=== PATIENT | male | born 1940 | race Caucasian/White ===

== ENCOUNTER → 2017-08-07 | Emergency (ER) | payer OTHER ==
[~2017-08-07] VITALS: Ht 172.7 cm; Wt 80.7 kg
[~2017-08-07] MED LIST: ALBUTEROL17 GM; ALLOPURINOL100 MG; ARICEPT5 MG; DICLOFENAC POTA50 MG; FLOVENT DISKU100 MCG; VERAPAMIL ER120 MG
== END | disposition home or self-care (01) ==
LOC: ER 17:55
DX: T17.228A Food in pharynx causing other injury, initial encounter (principal); X58.XXXA Exposure to other specified factors, initial encounter; Y93.89 Activity, other specified; Y92.018 Other place in single-family (private) house as the place of occurrence of the external cause; Y99.8 Other external cause status

== ENCOUNTER 2019-03-14 08:40 | Outpatient (CLI) | payer OTHER | END 2019-03-14 08:50 | disposition home or self-care (01) | LOC: NUCLEAR 08:40 | DX: J43.2 Centrilobular emphysema (principal); J30.1 Allergic rhinitis due to pollen; R91.1 Solitary pulmonary nodule; R06.02 Shortness of breath | CPT/HCPCS: 78815; A9552 ==